=== PATIENT | male | born 1980 | race Caucasian/White ===

== ENCOUNTER 2021-12-17 11:24 | Outpatient (CLI) | payer OTHER, SELFPAY ==
[2021-12-17 12:02] LABS: Hematocrit 44.8 % (37.0-53.0); Hemoglobin* 15.5 gm/dL (13.5-17.5); Mean Corpuscular HGB Conc 35 gm/dL (32-36); Mean Corpuscular Hemoglobin 31 pg (26-34); Mean Corpuscular Volume 90 fL (80-100); Platelet Count* 242 K/uL (140-440)
[2021-12-17 12:15] LABS: Slide Review Reflex No
[2021-12-17 12:27] LABS: Hemoglobin A1C* 5.6 % (0-5.6)
[2021-12-17 21:46] LABS: Alanine Aminotransferase* 33 U/L (4-50); Albumin* 5.1 g/dL (3.3-5.0); Alkaline Phosphatase* 69 U/L (40-150); Aspartate Amino Transferase* 38 U/L (12-35); Bilirubin Total* 1.3 mg/dL (0.1-1.5); Blood Urea Nitrogen* 18 mg/dL (5-24); Calcium* 9.7 mg/dL (8.4-10.6); Carbon Dioxide* 20 mmol/L (20-32); Chloride* 105 mmol/L (96-114); Cholesterol* 185 mg/dL (90-199); Creatinine Urine 176.1 mg/dL; Creatinine* 1.2 mg/dL (0.5-1.5); Estimated Glomerular Filt Rate 78 ml/min; Glucose* 105 mg/dL (60-115); HDL Cholesterol* 54 mg/dL (>=40); LDL Cholesterol Calculated 116 mg/dL (<100); Microalbumin Creatinine Ratio 0 mg/g (0-30); Microalbumin Urine < 1 mg/dL; Potassium* 4.4 mmol/L (3.6-5.1); Sodium* 139 mmol/L (135-149); Total Protein* 8.1 g/dL (6.0-8.3); Triglycerides* 74 mg/dL (40-149)
== END 2021-12-17 11:25 | disposition home or self-care (01) ==
PROVIDERS: PCP Family Medicine; Visit Provider Family Medicine
DX: Z00.00 Encounter for general adult medical examination without abnormal findings (principal); F33.0 Major depressive disorder, recurrent, mild; F41.9 Anxiety disorder, unspecified; R03.0 Elevated blood-pressure reading, without diagnosis of hypertension; Z13.1 Encounter for screening for diabetes mellitus; Z13.6 Encounter for screening for cardiovascular disorders
CPT/HCPCS: 80053; 80061; 82043; 82570; 83036; 84443; 85027

== ENCOUNTER 2022-08-03 11:11 | Outpatient (CLI) | payer OTHER, SELFPAY | END 2022-08-03 11:12 | disposition home or self-care (01) | PROVIDERS: PCP Family Medicine; Visit Provider Dermatology | DX: L40.8 Other psoriasis (principal) | CPT/HCPCS: 80053 ==

== ENCOUNTER 2023-03-10 08:48 | Outpatient (CLI) | payer OTHER, SELFPAY | END 2023-03-10 08:49 | disposition home or self-care (01) | PROVIDERS: PCP Family Medicine; Visit Provider Family Medicine | DX: R53.83 Other fatigue (principal); F10.982 Alcohol use, unspecified with alcohol-induced sleep disorder | CPT/HCPCS: 80053; 84403 ==

== ENCOUNTER 2023-04-27 08:35 | Outpatient (CLI) | payer OTHER, SELFPAY | END 2023-04-27 08:36 | disposition home or self-care (01) | LOC: NFLDREF 04-30 07:02 | PROVIDERS: PCP Family Medicine; Referring Provider Family Medicine; Visit Provider Family Medicine | DX: E29.1 Testicular hypofunction (principal); R53.83 Other fatigue; Z12.5 Encounter for screening for malignant neoplasm of prostate; F33.0 Major depressive disorder, recurrent, mild; F41.9 Anxiety disorder, unspecified; K21.9 Gastro-esophageal reflux disease without esophagitis; F10.982 Alcohol use, unspecified with alcohol-induced sleep disorder; Z72.0 Tobacco use | CPT/HCPCS: 82533; 82728; 83001; 83002; 84146; 84403; 84443; G0103 ==

== ENCOUNTER 2024-02-09 15:59 | Outpatient (CLI) | payer OTHER, SELFPAY | END 2024-02-09 16:00 | disposition home or self-care (01) | PROVIDERS: PCP Physician Assistant Medical; Visit Provider Family Medicine | DX: B37.2 Candidiasis of skin and nail (principal); Z79.899 Other long term (current) drug therapy; Z13.220 Encounter for screening for lipoid disorders; Z12.5 Encounter for screening for malignant neoplasm of prostate | CPT/HCPCS: 80053; 80061; G0103 ==

== ENCOUNTER 2024-03-05 19:05 | Outpatient (CLI) | payer OTHER, SELFPAY ==
--- NOTE | 2024-03-14 08:41 | W.PM.SLEEP ---
Sleep Study Details Details Interpreting Provider: Ann Marie Date of Sleep Study: 03/05/24 Sleep Study Details: STUDY TYPE:? Home unattended ? BMI:? 37.3 ORDERING PROVIDER:Keiko Le INDICATION:? Concern about sleep apnea ? SLEEP SUMMARY:? 344 minutes monitored RESPIRATORY SUMMARY:? AHI 29, left lateral 24.2, prone 6.0, supine 65.3, right lateral 11.2 Low oxygen 82 2.5% of study oxygen less than 90% Snoring 78.7% PERIODIC LIMB MOVEMENTS OF SLEEP:? Not recorded CARDIAC:? Range 62-125, mean 73.3 IMPRESSION:? Moderate nearly severe obstructive sleep apnea with supine position dependency RECOMMENDATION: Treatment options include CPAP, dental appliance, weight loss and/or airway expansion surgery.
== END 2024-03-05 19:06 | disposition home or self-care (01) ==
LOC: SLEEP 19:06
PROVIDERS: PCP Physician Assistant Medical; Visit Provider Otolaryngology
DX: G47.33 Obstructive sleep apnea (adult) (pediatric) (principal)
CPT/HCPCS: 95806

== ENCOUNTER 2024-03-06 15:15 | Outpatient (CLI) | payer OTHER, SELFPAY | END 2024-03-06 15:16 | disposition home or self-care (01) | PROVIDERS: PCP Physician Assistant Medical; Visit Provider Physician Assistant Medical | DX: B35.1 Tinea unguium (principal) | CPT/HCPCS: 84450; 84460 ==

== ENCOUNTER 2024-06-13 14:18 | Outpatient (RCR) | payer OTHER, SELFPAY | END 2024-10-11 23:59 | disposition home or self-care (01) | PROVIDERS: PCP Physician Assistant Medical; Visit Provider Physician Assistant Medical | DX: M54.50 Low back pain, unspecified (principal); G89.29 Other chronic pain; M25.561 Pain in right knee; Z51.89 Encounter for other specified aftercare | CPT/HCPCS: 97110; 97161 ==

== ENCOUNTER 2024-07-02 08:33 | Outpatient (CLI) | payer OTHER, SELFPAY | END 2024-07-02 08:34 | disposition home or self-care (01) | LOC: NFLDREF 07-03 06:22 | PROVIDERS: PCP Physician Assistant Medical; Referring Provider Physician Assistant Medical; Visit Provider Physician Assistant Medical | DX: E29.1 Testicular hypofunction (principal); R73.03 Prediabetes | CPT/HCPCS: 84403; 84450; 84460 ==

== ENCOUNTER 2025-01-09 15:31 | Outpatient (CLI) | payer OTHER, SELFPAY | END 2025-01-09 15:32 | disposition home or self-care (01) | LOC: NFLDREF 01-12 14:00 | PROVIDERS: PCP Physician Assistant Medical; Referring Provider Physician Assistant Medical; Visit Provider Physician Assistant Medical | DX: R73.03 Prediabetes; Z13.9 Encounter for screening, unspecified; R53.83 Other fatigue | CPT/HCPCS: 80053; 80061; 82306; 82607; 82728; 84443 ==

== ENCOUNTER 2025-01-10 15:34 | Emergency (ER) | payer OTHER, SELFPAY ==
[2025-01-10 15:40] VITALS: BP 130/76; PULSE 82; RESP 18; TEMP 36.3; O2SAT 97; BMI 42.1
--- NOTE | 2025-01-10 16:58 | CRLHL7_ITS ---
For Patients: As a result of the Century Cures Act, medical imaging exams and procedure reports are released immediately into your electronic medical record. You may view this report before your referring provider. If you have questions, please contact your health care provider. INDICATION: Headaches. TECHNIQUE: CT head without contrast. COMPARISON: None. FINDINGS: CSF spaces: Within normal limits for age. Brain parenchyma and extra-axial spaces: The nolasco-white differentiation is normal. No sign of mass, hemorrhage, or midline shift. No extra-axial fluid collection. Skull base and calvarium: The visualized paranasal sinuses and mastoid air cells demonstrate no acute or significant findings. The visualized orbits are grossly unremarkable. No skull fractures. IMPRESSION: Unremarkable noncontrast head CT. Please note that all CT scans at this facility use dose modulation, iterative reconstruction, and/or weight-based dosing when appropriate to reduce radiation dose to as low as reasonably achievable. Dictated by Wili Garcia MD @ 01/10/2025 5:22:55 PM (Electronically Signed)
--- NOTE | 2025-01-10 16:59 | ED.HA ---
HPI - Headache General Chief Complaint: Headache/Migraine Stated Complaint: sent from urgent care, needs MRI Time Seen by Provider: 01/10/25 16:36 History of Present Illness HPI Narrative: This 44-year-old male states that he has been having headaches on and off over the past 8 months or so. He states that they seem to generate an back side of his neck on either side and then pain emanates upper lung the back of his head. These are sharp pains that last a brief time. He does have some mild neck pain. He is not complaining of headache currently. He was at a therapy appointment and had an episode like this and was told to go immediately to the emergency department. He did not go but his headache returned again today so he went to urgent care. He was told at urgent care that he needs to have an MRI to evaluate for a stroke. He is not exhibiting any signs or reporting any signs of stroke. But these comments have triggered significant anxiety related to these matters. 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 Related Data Home Medications ?Medication ?Instructions ?Recorded ?Confirmed sildenafil (pulm.hypertension) 20 20 mg PO QDAY PRN 12/17/21 01/09/25 mg tablet bupropion HCl 300 mg 24 hr tablet, 300 mg PO DAILY 02/09/24 01/09/25 extended release naltrexone microspheres 380 mg 380 mg IM MONTHLY 02/09/24 01/10/25 intramuscular suspension,extended release (Vivitrol) guanfacine 3 mg tablet,extended 3 mg PO DAILY 01/09/25 01/09/25 release 24 hr hydroxyzine HCl 25 mg tablet 25 mg PO QHS 01/09/25 01/09/25 Previous Rx's ?Medication ?Instructions ?Recorded ketoconazole 2 % shampoo 1 applic topical 2XW #120 mL 08/03/22 ketoconazole 2 % topical cream 1 applic topical 2XW #60 grams 11/16/22 clotrimazole 1 % topical ointment 1 applic topical BID #56.7 grams 02/09/24 nystatin 100,000 unit/gram topical 1 applic topical BID #30 grams 02/10/24 ointment nicotine (polacrilex) 4 mg buccal 4 mg buccal Q8H PRN for nicotine 05/14/24 lozenge cravings #96 delvis fluoxetine 40 mg capsule (Prozac) 40 mg PO QAM #90 caps 04/04/25 omeprazole 20 mg capsule,delayed 20 mg PO QDAY #90 caps 12/13/24 release testosterone 1.62 % (20.25 mg/1.25 1 packet transdermal QAM 90 days 01/09/25 gram) transdermal gel packet #112.5 grams (AndroGel) tizanidine 4 mg tablet 4 mg PO QHS PRN muscle spasticity 01/09/25 #30 tabs tirzepatide (weight loss) 2.5 2.5 mg (0.5 mL) subcut QWEEK #2 mL 01/10/25 mg/0.5 mL subcutaneous pen injector (Zepbound) Allergies Allergy/AdvReac Type Severity Reaction Status Date / Time No Known Drug Allergies Allergy Verified 01/10/25 15:40 Review of Systems Status of ROS: Reports: 10 or more systems reviewed and unremarkable except as noted in History and below Narrative: Constitutional: No fevers, no weight gain or loss. Eyes: No discharge. No vision changes. HENT: No congestion, no sore throat, no ear pain. Cardiovascular: No chest pain, no palpitations. Respiratory: No shortness of breath, no wheezes, no cough. Gastrointestinal: No abdominal pain, no vomiting, no diarrhea. Genitourinary: No dysuria, no hematuria. Musculoskeletal: Normal range of motion. Skin: No rashes, no pruritis. Neurological: No dizziness, weakness, sensory change, speech change. Endo/Heme/Allergies: No bruising or bleeding. No polydipsia. Pysch: no suicidality, no insomnia. All other systems reviewed and are negative. [facility] Medical History (Updated 01/10/25 @ 18:02 by Waqar Almeida MD) Medication management ?Z79.899 - Other terminal operator (current) drug therapy (ICD-10) Headache ?R51.9 - Headache, unspecified (ICD-10) Impetigo ?L01.00 - Impetigo, unspecified (ICD-10) Fracture of tibia and fibula ?S82.209A - Unspecified fracture of shaft of unspecified tibia, initial encounter for closed fracture (ICD-10) ?S82.409A - Unspecified fracture of shaft of unspecified fibula, initial encounter for closed fracture (ICD-10) History of depression (12/20/11) ?Z86.59 - Personal history of other mental and behavioral disorders (ICD-10) Surgical History (Updated 11/12/22 @ 14:11 by Luis Greenberg) History of right knee surgery (02/05/20) ?Z98.890 - Other specified postprocedural states (ICD-10) History of tonsillectomy ?Z90.89 - Acquired absence of other organs (ICD-10) Social History (Updated 01/09/25 @ 14:52 by Kylee Reza ~ [facility], [facility]) What is your current living situation?: I presently have a place to live In the past 12 months, utilities in danger of being shut off: no In past 12 months, lack of transportation kept you from medical appts, meetings, work, or getting things needed for daily living: no In the past 12 mos, have been you worried that your food would run out before you had money to buy more?: never true In the past 12 mos, the food you bought just didn't last and you didn't have money to buy more?: never true Physical activity type: none Smoking Status: Current every day smoker What tobacco products do you use: cigarettes Nicotine containing products detail: 15 per day x15 years Second hand tobacco smoke exposure: No How often do you have a drink containing alcohol: never How many standard drinks containing alcohol do you have on a typical day: 10 or more How often do you have six or more drinks on one occasion: Never AUDIT-C Alcohol total score: 4 Non-prescribed substance use: denies use How often does anyone, including family, friends and others, physically hurt you: never How often does anyone, including family, friends and others, insult or talk down to you: never How often does anyone, including family, friends and others, threaten you with harm: never How often does anyone, including family, friends and others, scream or curse at you: never service: No Exam Narrative: Exam Narrative: Constitutional: Well-developed, well-nourished, no acute distress. HEENT: Normocephalic, atraumatic. Neck: Normal range of motion. Nontender. Supple. Heart: Regular. No murmurs. Normal rate. Intact distal pulses. Lungs: Clear to auscultation. No chest discomfort. No wheezes, rhonchi, or rales. Abdomen: Normal bowel sounds. Nontender. No rebound tenderness. Genitalia: Deferred. Back: No midline tenderness. Normal range of motion. Extremities: Normal range of motion. No injury. Skin: Intact. No rash. Warm. No erythema or pallor. Neurologic: No altered sensation. No weakness. Alert and oriented. No facial asymmetry. Tongue is midline. [id number]-jg-[id number] is normal. No pronator drift. Foster Winder strength is equal bilaterally. Able to raise each leg from the bed. Psychiatric: No suicidality. No anxiety or depression. No insomnia. Nursing notes and vitals signs are reviewed. Const: Vital Signs, click to edit/add: Vital Signs - 24 hr 01/10/25 15:40 Temperature 97.3 F L Pulse Rate [Pulse Oximeter] 82 Respiratory Rate 18 Blood Pressure [Ri ght Upper Arm] 130/76 Pulse Oximetry 97 Oxygen Delivery Me thod Room Air Course Vital Signs Vital signs: Initial Vital Signs Temperature 97.3 F L 01/10/25 15:40 Temperature Source Temporal Artery Scan 01/10/25 15:40 Pulse Rate 82 01/10/25 15:40 Respiratory Rate 18 01/10/25 15:40 Blood Pressure 130/76 01/10/25 15:40 Blood Pressure Mean 94 01/10/25 15:40 Pulse Oximetry 97 01/10/25 15:40 Oxygen Delivery Method Room Air 01/10/25 15:40 Vital Signs Temperature 97.3 F L 01/10/25 15:40 Pulse Rate 82 01/10/25 15:40 Respiratory Rate 18 01/10/25 15:40 Blood Pressure 130/76 01/10/25 15:40 Pulse Oximetry 97 01/10/25 15:40 Oxygen Delivery Method Room Air 01/10/25 15:40 Temperature 97.3 F L 01/10/25 15:40 Pulse Rate 82 01/10/25 15:40 Respiratory Rate 18 01/10/25 15:40 Blood Pressure 130/76 01/10/25 15:40 Pulse Oximetry 97 01/10/25 15:40 Oxygen Delivery Method Room Air 01/10/25 15:40 Medications Administered Medications: Generic Name Dose Route Start Last Admin Trade Name Freq PRN Reason Stop Dose Admin Lidocaine HCl 30 ml 01/10/25 16:57 01/10/25 17:04 Lidocaine 1 % Pf 30 Ml INJECTION 30 ml ONCE PRN Administration Discontinued Medications Generic Name Dose Route Start Last Admin Trade Name Freq PRN Reason Stop Dose Admin Methylprednisolone Sodium Succinate 125 mg 01/10/25 16:57 01/10/25 17:04 Methylprednisolone Sod Succ 62.5 Mg/Ml (125) IM 01/10/25 16:58 125 mg ONCE ONE Administration MDM - Headache MDM Narrative Medical decision making narrative: this patient comes in reporting brief sharp headache episodes that emanate from the left or the right side of his occipital region and posterior neck. He is anxious because someone told him that he might be having a stroke. He was sent here from urgent care for an MRI. His neurologic exam is completely normal and currently he is not having any symptoms. I stated that an MRI is not indicated but the patient was sufficiently anxious and interested in getting a CT scan. This returns with normal findings. His symptoms are suspicious for an occipital neuralgia so I recommended a therapeutic injection which she agreed to. The patient received 125 mg of Solu-Medrol mixed with 5 mL of 1% lidocaine. This was injected half on either side of his nuchal ligament overlying the occipital nerves. He tolerated the procedure well. He is okay to be discharged home. Imaging Data CT scan - head: Radiologist's impression: Unremarkable noncontrast head CT. Discharge Plan Discharge Clinical Impression: Occipital neuralgia Patient Disposition: Home, Self-Care Condition: Stable Additional Instructions: use sula-whr-ctfjoes medicines as needed and directed. Follow up with MD or return symptoms are recurrent or worsening. Prescriptions: No Action sildenafil (pulm.hypertension) 20 mg tablet 20 mg PO QDAY PRN Patient Comments: Take 3 tablets by mouth one hour prior to sex as needed. guanfacine 3 mg tablet extended release 24 hr 3 mg PO DAILY hydroxyzine HCl 25 mg tablet 25 mg PO QHS testosterone [AndroGel] 1.62 % (20.25 mg/1.25 gram) gel in packet 1 packet transdermal QAM 90 Days Qty: 112.5 1RF Rx Instructions: apply to max area of ONE upper arem and shoulder tizanidine 4 mg tablet 4 mg PO QHS PRN (Reason: muscle spasticity) Qty: 30 0RF ketoconazole 2 % shampoo 1 applic topical 2XW Qty: 120 2RF bupropion HCl 300 mg tablet extended release 24 hr 300 mg PO DAILY Vivitrol 380 mg suspension,extended rel recon 380 mg IM MONTHLY clotrimazole 1 % ointment 1 applic topical BID Qty: 56.7 12RF ketoconazole 2 % cream 1 applic topical 2XW Qty: 60 0RF Rx Instructions: Apply to face two times per week. nystatin 100,000 unit/gram ointment 1 applic topical BID Qty: 30 1RF nicotine (polacrilex) 4 mg lozenge 4 mg buccal Q8H PRN (Reason: for nicotine cravings) Qty: 96 0RF fluoxetine [Prozac] 40 mg capsule 40 mg PO QAM Qty: 90 0RF omeprazole 20 mg capsule,delayed release(DR/EC) 20 mg PO QDAY Qty: 90 0RF Zepbound 2.5 mg/0.5 mL pen injector 2.5 mg subcut QWEEK Qty: 2 0RF Rx Instructions: for 4 weeks Follow Up/Referrals: Yo Le PA-C [Primary Care Provider, Family Practice] Stand Alone Forms: [facility] Info Instructions
[2025-01-10] MEDS: METHYLPREDNISOLONE SOD SUCC 62.5 MG/ML (125) 125 MG IM (17:04)
[2025-01-10] MEDS: LIDOCAINE 1 % PF 30 ML INJECTION (17:04)
--- OUTSIDE RECORDS SUMMARY | 2025-01-10 17:06 | XMS_ITS | Encounter Summary ---
Author Organization [facility] Address [address] [place] [address] Care Team Providers Care Aerospace Engineer Name Role Phone Andrew Carbone MD Primary Care Provider [phone] Andrew Carbone MD Unavailable Andrew Carbone MD Unavailable Encounter Details Date Type Department Care Team (Late st Contact Info) Description 07/13/2018 My[facility] Medical Advice [facility] [id number] [place] [address], [address] [place] [address] Kylee Morley, [facility] Social History Tobacco Use Types Packs/Day Years Used Date Smoking Tobacco: Former Cigarettes 1 12 1 05/18/1999 - 03/17/2012 Smokeless Tobacco: Never Alcohol Use Standard Drinks/Week Comments Yes 0 (1 standard drink = 0.6 oz pur e alcohol) 2-5 drinks daily (beer). 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 Gender Identity Not on file Sexual Orientation Not on file documented as of this encounter Plan of Treatment Not on file documented as of this encounter Visit Diagnoses Not on filedocumented in this encounter Additional Health Concerns Assessment Noted Time PHQ-9 Depression Total Score: 7 06/06/19 19 3:06 PM CERTIFIED MARINE MECHANIC documented as of this encounter Care Teams Aerospace Engineer Relationship Specialty Start Date End Date Andrew Carbone MD PCP - General Family Practice 01/19/12 [place] [id number] [address] [id number] Assigned PCP 11/16/20 01/01/24 [place] [id number] [address] [id number] Assigned PCP 01/13/12 11/15/20 documented as of this encounter
--- OUTSIDE RECORDS SUMMARY | 2025-01-10 17:06 | XMS_ITS | Clinical Summary ---
Author Organization [facility] Address [address] [place] [address] Care Team Providers Care Clean Out Driller Name Role Phone Pcp, No Primary Care Provider Unavailabl e Allergies No known active allergies Medications loratadine (ALAVERT) 10 mg tablet Take 1 tablet by mouth once daily. 0 1 Active sertraline (ZOLOFT) 100 mg tablet Take 1 tablet by mouth once daily. 30 tablet 0 1 Active azithromycin (ZITHROMAX Z-JIN) 250 mg tablet Take 2 tablets by mouth today, then take 1 tablet daily the next 4 days. 6 tablet 10/10/2014 8:16 PM CDT 5 Active omeprazole (PRILOSEC) 20 mg Delayed-Release capsule Take 1 Capsule by mouth once daily. 2 Active FLUoxetine (PROZAC) 40 mg capsule 3 Active buPROPion 300 mg Extended-Release tablet Take 1 Tablet by mouth once daily. 5 Active celecoxib 100 mg capsule 5 Active hydrOXYzine HCL 25 mg tablet Take 1 Tablet by mouth every 6 hours if needed for Anxiety. 4 Active nystatin 100,000 unit/g ointment apply topically twice a day 4 Active VivitroL 380 mg intramuscular injection 5 Active erythromycin ophthalmic ointment 0.5%Indications:A brasion of right cornea, initial encounter Apply 1 Strip to right eye 5 times daily. 3.5 g 5 Active ranitidine (ZANTAC) 150 mg tablet TAKE 1 TABLET BY MOUTH 2 TIMES DAILY. 60 tablet 2 2 025 Discontin ued(*Alisia ent states no longer taking) naproxen (NAPROSYN) 500 mg tablet Take 1 tablet by mouth 2 times daily with meals. 20 tablet 10/10/2014 8:16 PM CDT 5 025 Discontin ued(*Alisia ent states no longer taking) Active Problems Problem Noted Date Diagnosed Date Adjustment disorder with mixed anxiety and depre ssed mood 12/11/2010 Plantar fasciitis 12/11/2010 GERD (gastroesophageal reflux disease) 1 Resolved Problems Problem Noted Date Diagnosed Date Resolved Date Depressive disorder, not elsewhere classified 06/17/19 07 12/11/2010 Encounters Date Type Department Care Team Description 01/10/2025 2:30 PM CDT Office Visit [facility] [id number] [place] [id number] Beckie Davis MD Headache 01/10/2025 Travel 12/24/2024 3:20 PM CDT Office Visit [facility] [address] [place] [address] Skye Marmolejo MD Referral (Sleep ) 12/24/2024 Travel 12/21/2024 Travel from Last 3 Months Immunizations Immunization Administration Dates Next Due INFLUENZA, IIV3 PF (AGE >= 6 MO) 01/05/2016 Influenza, IIV4 01/20/2015,02/15/2014 Tdap 04/10/2014,12/20/2011 Social History Tobacco Use Types Packs/Day Years Used Date Smoking Tobacco: Former Cigarettes 1 22.1 2 003 - 05/2024 Smokeless Tobacco: Former Chew Tobacco Cessation:Counseling Given: Not Answered Comments:occasional Alcohol Use Standard Drinks/Week Comments Not Asked 0 (1 standard drink = 0.6 oz pur e alcohol) Social Connections Answer Date Recorded Do you often feel lonely or isolated from those around you? 0 07/14/2024 Alcohol Use Answer Date Recorded How often do you have a drink containing alcohol ? 0 12/24/2024 Average Number of Drinks Not on file 025 Frequency of Binge Drinking Not on file 12/10 Financial Resource Strain Answer Date R ecorded Difficulty of Paying Living Expenses 3 07/14/2024 Difficulty of Paying Living Expenses Not on file 07/14/2024 Food Insecurity Answer Date Recorded Do you worry your food will run out before you are able to buy more? 1 07/14/2024 Transportation Needs Answer Date Record ed Does lack of transportation keep you from medica l appointments? 1 07/14/2024 Does lack of transportation keep you from work, meetings or getting things that you need? 1 07/14/2024 Housing Stability Answer Date Recorded What is your housing situation today? 1 07/14/2024 Utilities Answer Date Recorded Do you have trouble paying f or utilities (for example, heat, electricity, water, phone)? 1 07/14/2024 Sex and Gender Information Value Date Recorded Sex Assigned at Not on file Legal Sex Male 7:18 AM INDUSTRIAL SAFETY ENGINEER Gender Identity Not on file Sexual Orientation Not on file Obstetrics History Last Filed Vital Signs Vital Sign Reading Time Taken Comments Blood Pressure 122/66 01/10/2025 2:54 PM CDT Pulse 70 01/10/2025 2:54 PM CDT Temperature 36.1 C (97 F) 01/10/2025 2:54 PM CDT Respiratory Rate 18 01/10/2025 2:54 PM CDT Oxygen Saturation 100% 01/10/2025 2:54 PM CDT Inhaled Oxygen Concentration - - Weight 126.6 kg (279 lb) 12/24/2024 3:22 PM CDT Height 177.8 cm (5' 10) 11/17/2022 10:44 AM CDT Body Mass Index 40.03 11/17/2022 10:44 AM CDT Plan of Treatment Upcoming Encounters Date Type Department Care Team (Late st Contact Info) Description 02/13/2025 2:30 PM INDUSTRIAL SAFETY ENGINEER Office Visit [facility] [address] [facility] [address] [place] [address] Becky Macias MD [address] [address] Health Maintenance Due Date Last Done Comments Depression screening for age 12+ 1992 HIV for age 15-65 10/27/1995 Hepatitis C screening for ag e 18-79 1998 Hepatitis B series for 19+ ( 1 of 3 - 19+ 3-dose series) 10/27/1999 HPV series for age 9-45 (1 - 3-dose SCDM series) 10/27/2007 Lipids for age 35-44 10/27/2015 BMI (ht and wt on same day) for age 18+ 11/18/2023 11/17/2022 Tetanus booster 04/10/2024 04/10/2014, 12/20/2011 COVID-19 vaccine series (2023- season) 2024 Influenza Vaccine (#1) 2024 6, 01/20/2015, 02/15/2014 RSV vaccine for adults or (1 - 1-dose 75+ series) 10/27/2055 Pneumococcal series for age 6-49 Aged Out No longer eligible b ased on patient's age to complete this topic Insurance [facility] Care Teams Clean Out Driller Relationship Specialty Start Date End Date Pcp, No . PCP - General 11/17/22
--- OUTSIDE RECORDS SUMMARY | 2025-01-10 17:06 | XMS_ITS | Encounter Summary ---
Author Organization [facility] Address [address] [place] [address] Care Team Providers Care Grab Setter Name Role Phone Andrew Carbone MD Primary Care Provider [phone] Andrew Carbone MD Unavailable Andrew Carbone MD Unavailable Encounter Details Date Type Department Care Team (Late st Contact Info) Description 09/16/2020 [facility] Medical Advice [address] [address] Portia Harris Social History Tobacco Use Types Packs/Day Years Used Date Smoking Tobacco: Former Cigarettes 1 12 1 05/18/1999 - 03/17/2012 Smokeless Tobacco: Never Alcohol Use Standard Drinks/Week Comments Yes 0 (1 standard drink = 0.6 oz pur e alcohol) 2-5 drinks daily (beer). PHQ-2 Answer Date Recorded PHQ-2 Score 0 05/23/2019 Sex and Gender Information Value Date Recorded Sex Assigned at Not on file Legal Sex Male 5:15 AM RN FAMILY PRACTICE Gender Identity Not on file Sexual Orientation Not on file documented as of this encounter Plan of Treatment Not on file documented as of this encounter Visit Diagnoses Not on filedocumented in this encounter Additional Health Concerns Assessment Noted Time PHQ-9 Depression Total Score: 9 06/06/19 20 7:03 AM RN FAMILY PRACTICE documented as of this encounter Care Teams Grab Setter Relationship Specialty Start Date End Date Andrew Carbone MD PCP - General Family Practice 01/19/12 [place] [address] [address] [address] Assigned PCP 11/16/20 01/01/24 [place] [address] [address] [id number] Assigned PCP 01/13/12 11/15/20 documented as of this encounter
--- OUTSIDE RECORDS SUMMARY | 2025-01-10 17:06 | XMS_ITS | Encounter Summary ---
Author Organization [facility] Address [address] [place] [address] Care Team Providers Care Auto Parts Handler Name Role Phone Anrdew Carbone MD Primary Care Provider [phone] Andrew Carbone MD Unavailable Andrew Carbone MD Unavailable Andrew Carbone MD Unavailable Encounter Details Date Type Department Care Team (Late st Contact Info) Description 12/09/2014 [facility] Medical Advice [address] [address] Cherelle Hernandez APRN MILL ATTENDANT [address] [place] [address] [address] [place], [place] [id number] Social History Tobacco Use Types Packs/Day Years Used Date Smoking Tobacco: Former Cigarettes 1 12 1 05/18/1999 - 03/17/2012 Smokeless Tobacco: Never Alcohol Use Standard Drinks/Week Comments Yes 0 (1 standard drink = 0.6 oz pur e alcohol) 2-5 drinks daily (beer). 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
--- OUTSIDE RECORDS SUMMARY | 2025-01-10 17:06 | XMS_ITS | Encounter Summary ---
Author Organization [place] Address [facility] [place] [address] Care Team Providers Care Research Assistant Member Name Role Phone Andrew Carbone MD Primary Care Provider [phone] Andrew Carbone MD Unavailable Reason for Visit * Reason Comments Medication Refill Encounter Details Date Type Department Care Team (Late st Contact Info) Description 11/23/2021 Refill [facility] [id number] [place] [address] [place] [address] [place] [address] Medication Refill Social History Tobacco Use Types Packs/Day Years Used Date Smoking Tobacco: Every Day Cigarettes 1 12 Started: 03/17/2000; Last attempted to quit: 03/17/2012 Smokeless Tobacco: Never Alcohol Use Standard Drinks/Week Comments Yes 0 (1 standard drink = 0.6 oz pur e alcohol) 2-5 drinks daily (beer). 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 Patient was last seen on 11/10/2020. Melissa Sanz RN Patient Advocate Liaison (PAL) [facility] documented in this encounter Plan of Treatment Not on file documented as of this encounter Visit Diagnoses Diagnosis Gastroesophageal reflux disease, unspecified whether esophagitis present documented in this encounter Additional Health Concerns Assessment Noted Time PHQ-9 Depression Total Score: 15 021 1:33 PM CDT documented as of this encounter Care Teams Research Assistant Member Relationship Specialty Start Date End Date Andrew Carbone MD PCP - General Family Practice 01/19/12 [place] [address] [place] [address] Assigned PCP 11/16/20 01/01/24 documented as of this encounter
--- OUTSIDE RECORDS SUMMARY | 2025-01-10 17:06 | XMS_ITS | Encounter Summary ---
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
--- OUTSIDE RECORDS SUMMARY | 2025-01-10 17:06 | XMS_ITS | Encounter Summary ---
Author Organization [place] Address [address] [place] [address]. [place] [address] Care Team Providers Care Electric Freight Car Operator Name Role Phone Andrew Carbone MD Primary Care Provider [phone] Andrew Carbone MD Unavailable Andrew Carbone MD Unavailable Andrew Carbone MD Unavailable Reason for Visit * Reason Onset Date Comments Medication Refill 09/09/2017 venlafaxine (E FFEXOR-XR) 150MG & 75MG 24 hr capsule Encounter Details Date Type Department Care Team (Late st Contact Info) Description 09/09/[address], [address] [place] [address] [place] [address] [place] [address] Medication Refill (venlafaxine (EFFEXOR-XR) 150MG & 75MG 24 hr capsule) Social History Tobacco Use Types Packs/Day Years Used Date Smoking Tobacco: Former Cigarettes 1 12 1 05/18/1999 - 03/17/2012 Smokeless Tobacco: Never Alcohol Use Standard Drinks/Week Comments Yes 0 (1 standard drink = 0.6 oz pur e alcohol) 2-5 drinks daily (beer). 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 This is the third voicemail left per below documentation. Will route to PCP to review refill request. Lizzy Larose RN -- [facility] Workforce * Telephone Encounter - Cheyenne Andrade RN - 09/16/2017 4:04 PM CDT LM to schedule appt Cheyenne Andrade RN, BS Clinical Nurse Triage. * Telephone Encounter - Dina Rinaldi RN - 09/09/2017 9:06 AM CDT Patient due for an office visit. Almost 1 year since last OV (09/14/2016) Left a detailed message on voice mail for patient to call the clinic back and schedule an appointment. Dina Rinaldi RN venlafaxine (EFFEXOR-XR) 150MG & 75MG 24 hr capsule Last Written Prescription Date: 01/25/2017 Last Fill Quantity: 30, # refills: 3 Last office visit: 09/14/2016 with prescribing provider: Future Office Visit: Requested Prescriptions Pending Prescriptions Disp Refills ??? venlafaxine (EFFEXOR-XR) 75 MG 24 hr capsule [Pharmacy Med Name: VENLAFAXINE ER 75MG CAP] 30 capsule 3 Sig: TAKE ONE CAPSULE BY MOUTH EVERY DAY ALONG WITH THE 150MG CAPSULE TO MAKE A TOTAL DOSE OF 225MGDAILY . Serotonin-Norepinephrine Reuptake Inhibitors Failed 09/09/2017 3:50 AM Failed - Normal serum creatinine on file in past 12 months Recent Labs Lab Test 03/19/15 0833 CR 1.02 Passed - Blood pressure under 140/90 in past 12 months BP Readings from Last 3 Encounters: 09/14/16 132/88 03/19/15 126/78 01/20/15 136/62 Passed - Recent (12 mo) or future (30 days) visit within the authorizing provider's specialty Patient had office visit in the last 12 months or has a visit in the next 30 days with authorizing provider or within the authorizing provider's specialty. See Patient Info tab in inbasket, or Choose Columns in Meds & Orders section of the refill encounter. Passed - Patient is age 18 or older ??? venlafaxine (EFFEXOR-XR) 150 MG 24 hr capsule [Pharmacy Med Name: VENLAFAXINE HCL ER 150MG CP24] 30 capsule 3 Sig: TAKE ONE CAPSULE BY MOUTH EVERY DAY ALONG WITH A 75MG CAPSULE TO MAKE A TOTAL DOSE OF 225MG DAILY . Serotonin-Norepinephrine Reuptake Inhibitors Failed 09/09/2017 3:50 AM Failed - Normal serum creatinine on file in past 12 months Recent Labs Lab Test 03/19/15 0833 CR 1.02 Passed - Blood pressure under 140/90 in past 12 months BP Readings from Last 3 Encounters: 09/14/16 132/88 03/19/15 126/78 01/20/15 136/62 Passed - Recent (12 mo) or future (30 days) visit within the authorizing provider's specialty Patient had office visit in the last 12 months or has a visit in the next 30 days with authorizing provider or within the authorizing provider's specialty. See Patient Info tab in inbasket, or Choose Columns in Meds & Orders section of the refill encounter. Passed - Patient is age 18 or older documented in this encounter Plan of Treatment Not on file documented as of this encounter Visit Diagnoses Diagnosis Generalized anxiety disorder documented in this encounter Additional Health Concerns Assessment Noted Time PHQ-9 Depression Total Score: 7 09/17/19 17 7:13 AM CDT documented as of this encounter Care Teams Electric Freight Car Operator Relationship Specialty Start Date End Date Andrew Carbone MD PCP - General Family Practice 01/19/12 [place] [address] [address] [address] PCP - Assigned PCP 10/31/11 06/13/18 [place] [address] [address] [address] Assigned PCP 11/16/20 01/01/24 [place] [address] [address] [place] [address] Assigned PCP 01/13/12 11/15/20 documented as of this encounter
--- OUTSIDE RECORDS SUMMARY | 2025-01-10 17:06 | XMS_ITS | Encounter Summary ---
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 HEADING Gender Identity Not on file Sexual Orientation Not on file documented as of this encounter Plan of Treatment Not on file documented as of this encounter Visit Diagnoses Not on filedocumented in this encounter Additional Health Concerns Assessment Noted Time PHQ-9 Depression Total Score: 7 06/06/19 19 3:06 PM SUPERVISOR HEADING documented as of this encounter Care Teams Financial Reporting Consultant Relationship Specialty Start Date End Date Andrew Carbone MD PCP - General Family Practice 01/19/12 [place] [address] [address] [address] Assigned PCP 11/16/20 01/01/24 [place] [address] [address] [place] [address] Assigned PCP 01/13/12 11/15/20 documented as of this encounter
--- OUTSIDE RECORDS SUMMARY | 2025-01-10 17:06 | XMS_ITS | Encounter Summary ---
Author Organization [place] Address [facility] 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 Deena Rojas RN on 02/03/2021 at 2:50 PM documented in this encounter Plan of Treatment Not on file documented as of this encounter Visit Diagnoses Diagnosis Gastroesophageal reflux disease, unspecified whether esophagitis present documented in this encounter Additional Health Concerns Assessment Noted Time PHQ-9 Depression Total Score: 15 021 1:33 PM CDT documented as of this encounter Care Teams School Supervisor Relationship Specialty Start Date End Date Andrew Carbone MD PCP - General Family Practice 01/19/12 [place] [address] [place] [address] Assigned PCP 11/16/20 01/01/24 documented as of this encounter
--- OUTSIDE RECORDS SUMMARY | 2025-01-10 17:06 | XMS_ITS | Encounter Summary ---
Author Organization [place] Address [address] [place] [address] Care Team Providers Care Field Contractor Name Role Phone Andrew Carbone MD Primary Care Provider [phone] Andrew Carbone MD Unavailable Andrew Carbone MD Unavailable Andrew Carbone MD Unavailable Reason for Visit * Reason Comments Medication Refill omeprazole (PRILOSEC ) 20 MG CR capsule Encounter Details Date Type Department Care Team (Late st Contact Info) Description 07/30/[address], [address] [place] [address] [place] [address] [place] [address] Medication Refill (omeprazole (PRILOSEC) 20 MG CR capsule) Social History Tobacco Use Types Packs/Day Years Used Date Smoking Tobacco: Former Cigarettes 1 12 1 05/18/1999 - 03/17/2012 Smokeless Tobacco: Never Alcohol Use Standard Drinks/Week Comments Yes 0 (1 standard drink = 0.6 oz pur e alcohol) 2-5 drinks daily (beer). 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 Cheyenne Andrade RN, BS Clinical Nurse Triage. * Telephone Encounter - JulioIoana Cristian - 07/30/2016 9:53 AM CDT omeprazole (PRILOSEC) 20 MG CR capsule Last Written Prescription Date: 07/30/2016 Last Fill Quantity:90, # refills: 3 Last Office Visit with [facility] or [facility] prescribing provider:03/19/2015 documented in this encounter Plan of Treatment Not on file documented as of this encounter Visit Diagnoses Diagnosis Gastroesophageal reflux disease, esophagitis presence not specified- Primary documented in this encounter Additional Health Concerns Assessment Noted Time PHQ-9 Depression Total Score: 7 03/20/20 15 7:29 AM TIPPLE OILER documented as of this encounter Care Teams Field Contractor Relationship Specialty Start Date End Date Andrew Carbone MD PCP - General Family Practice 01/19/12 [place] [address] [address] [address] PCP - Assigned PCP 10/31/11 06/13/18 [place] [address] [address] [address] Assigned PCP 11/16/20 01/01/24 [place] [address] [address] [address] Assigned PCP 01/13/12 11/15/20 documented as of this encounter
--- OUTSIDE RECORDS SUMMARY | 2025-01-10 17:06 | XMS_ITS | Encounter Summary ---
Author Organization [place] Address [address] [place] [address]. [place] [address] Care Team Providers Care Communications Professional Name Role Phone Andrew Carbone MD Primary Care Provider [phone] Andrew Carbone MD Unavailable Andrew Carbone MD Unavailable Reason for Visit * Reason Onset Date Comments Medication Refill 05/15/2019 Effexor XR 150 mg and 75mg Encounter Details Date Type Department Care Team (Late st Contact Info) Description 05/15/2019 Refill [place] [address] [facility], [address] [place] [address] [place] [address] [place] [address] Medication Refill (Effexor XR 150mg and 75mg) Social History Tobacco Use Types Packs/Day Years [...] on file 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 Gender Identity Not on file Sexual Orientation Not on file documented as of this encounter Miscellaneous Notes * Telephone Encounter - Dina Rinaldi RN - 05/15/2019 4:04 PM CST Effexor XR 150mg and 75mg Last Written Prescription Date: 2018 Last Fill Quantity: 90, # refills: 1 Last office visit: 2018 with prescribing provider: Future Office Visit: PHQ-9 SCORE 04/24/2018 05/25/2018 06/06/2018 PHQ-9 Total Score - - - PHQ-9 Total Score 19 8 7 RENÉ-7 SCORE 04/24/2018 05/25/2018 06/06/2018 Total Score - - - Total Score 12 7 4 Creatinine Date Value Ref Range Status 03/19/2015 1.02 0.66 - 1.25 mg/dL Final Routing refill request to provider for review/approval because: Labs not current: Needs yearly creatinine. PHQ-9 > 4. Dina Rinaldi RN STRIAL NURSE documented in this encounter Plan of Treatment Not on file documented as of this encounter Visit Diagnoses Diagnosis Generalized anxiety disorder documented in this encounter Additional Health Concerns Assessment Noted Time PHQ-9 Depression Total Score: 7 06/06/19 19 3:06 PM INDUSTRIAL NURSE documented as of this encounter Care Teams Communications Professional Relationship Specialty Start Date End Date Andrew Carbone MD PCP - General Family Practice 01/19/12 [place] [address] [address] [address] Assigned PCP 11/16/20 01/01/24 [place] [address] [address] [address] Assigned PCP 01/13/12 11/15/20 documented as of this encounter
--- OUTSIDE RECORDS SUMMARY | 2025-01-10 17:06 | XMS_ITS | Encounter Summary ---
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 Jazmine Rangel RN ED TAPE PRESS OPERATOR documented in this encounter Plan of Treatment Not on file documented as of this encounter Visit Diagnoses Diagnosis Gastroesophageal reflux disease Esophageal reflux documented in this encounter Additional Health Concerns Assessment Noted Time PHQ-9 Depression Total Score: 9 06/06/19 20 7:03 AM GUMMED TAPE PRESS OPERATOR documented as of this encounter Care Teams Licensing Officer Relationship Specialty Start Date End Date Andrew Carbone MD PCP - General Family Practice 01/19/12 [place] [address] [address] [address] Assigned PCP 11/16/20 01/01/24 [place] [address] [address] [address] Assigned PCP 01/13/12 11/15/20 documented as of this encounter
--- OUTSIDE RECORDS SUMMARY | 2025-01-10 17:06 | XMS_ITS | Patient Health Record ---
Author Organization [facility] Address [address] [place] [address] Support Name Relationship Address Phone Christopher Vang Guarantor Unknown Unavailable Reason For Referral No Information Medications Medication SIG (Take, Route, Frequency, Duration) Notes Start Date End Date Status Omeprazole ; Duration: 90 SpecialInstructi on: TAKE 1 CAPSULES (20 MG) BY MOUTH DAILY TAKE 30-60 MINUTES BEFORE A ROB L. 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
--- OUTSIDE RECORDS SUMMARY | 2025-01-10 17:06 | XMS_ITS | Encounter Summary ---
Author Organization [place] Address [address] [place] [address] Care Team Providers Care Demand Generator Manager Name Role Phone Andrew Carbone MD Primary Care Provider [phone] Andrew Carbone MD Unavailable Andrew Carbone MD Unavailable Reason for Visit * Reason Onset Date Comments Medication Refill 07/07/2018 omeprazole ([place] ILOSEC) [address] capsule Encounter Details Date Type Department Care Team (Late st Contact Info) Description 07/07/2018 Refill [place] [address] [facility], [address] [place] [address] [place] [address] [place] [address] Medication Refill (omeprazole (PRILOSEC) [address] capsule) Social History Tobacco Use Types Packs/Day [...] on file 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 Dina Rinaldi RN * Telephone Encounter - Addie Ni - 07/07/2018 9:54 AM CDT Requested Prescriptions Pending Prescriptions Disp Refills ??? omeprazole (PRILOSEC) [address] capsule [Pharmacy Med Name: OMEPRAZOLE 20MG CPDR] Last Written Prescription Date: Last Fill Quantity: 90 cap, # refills: 1 Last Office Visit: 04/24/2018 eze Future Office Visit: Next 5 appointments (look out 90 days) Jul 10, 2018 1:30 PM CDT Return Visit with [facility]kie [facility] ([facility] [address] [place] [address] 90 capsule 1 Sig: TAKE ONE CAPSULE BY MOUTH EVERY DAY PPI Protocol Passed - 07/07/2018 4:55 AM Passed - Not on Clopidogrel (unless Pantoprazole ordered) Passed - No diagnosis of osteoporosis on record Passed - Recent (12 mo) or future (30 days) visit within the authorizing provider's specialty Patient had office visit in the last 12 months or has a visit in the next 30 days with authorizing provider or within the authorizing provider's specialty. See Patient Info tab in inbasket, or Choose Columns in Meds & Orders section of the refill encounter. Passed - Medication is active on med list Passed - Patient is age 18 or older documented in this encounter Plan of Treatment Not on file documented as of this encounter Visit Diagnoses Diagnosis Gastroesophageal reflux disease, esophagitis presence not specified documented in this encounter Additional Health Concerns Assessment Noted Time PHQ-9 Depression Total Score: 7 06/06/19 19 3:06 PM ANIMAL NUTRITIONIST documented as of this encounter Care Teams Demand Generator Manager Relationship Specialty Start Date End Date Andrew Carbone MD PCP - General Family Practice 01/19/12 [place] [address] [address] [address] Assigned PCP 11/16/20 01/01/24 [place] [address] [address] [address] Assigned PCP 01/13/12 11/15/20 documented as of this encounter
--- OUTSIDE RECORDS SUMMARY | 2025-01-10 17:06 | XMS_ITS | Encounter Summary ---
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
--- OUTSIDE RECORDS SUMMARY | 2025-01-10 17:06 | XMS_ITS | Clinical Summary ---
Author Organization [facility] Address [address] [place] [id number] Care Team Providers [employer] Name Role Phone Andrew Carbone MD Primary Care Provider [phone] Allergies No known active allergies Medications cetirizine (ZYRTEC) 10 MG tabletIndication s:Seasonal allergic rhinitis, unspecified trigger Take 1 tablet (10 mg) by mouth daily 90 tablet 1 01/09/2018 Active diclofenac (CATAFLAM) 50 MG tabletIndication s:Acute pain of right shoulder,Right elbow pain Take 1 tablet (50 mg) by mouth 3 times daily as needed (pain) 30 tablet 1 05/23/2019 Active buPROPion (WELLBUTRIN XL) 150 MG 24 hr tabletIndication s:Generalized anxiety disorder Take 1 tablet (150 mg) by mouth every morning 90 tablet 1 11/10/2020 Active venlafaxine (EFFEXOR-XR) 75 MG 24 hr capsuleIndicatio ns:Generalized anxiety disorder TAKE 1 CAPSULE BY MOUTH EVERY DAY 30 capsule 06/15/2021 Active venlafaxine (EFFEXOR-XR) 150 MG 24 hr capsuleIndicatio ns:Generalized anxiety disorder TAKE 1 CAPSULE BY MOUTH EVERY DAY 30 capsule 06/25/2021 Active omeprazole (PRILOSEC) [address] capsuleIndicatio ns:Gastroesophag eal reflux disease, unspecified whether esophagitis present TAKE 1 CAPSULE BY MOUTH EVERY DAY 30 capsule 11/26/2021 Active Active Problems Problem Noted Date Diagnosed Date Seasonal allergic rhinitis 01/09/2018 Elevated fasting glucose 03/21/2015 Morbid obesity 03/19/2015 Elevated blood pressure read ing in office with diagnosis of hypertension 01/20/2015 CARDIOVASCULAR SCREENING; LDL GOAL LESS THAN 160 2011 Overview (2011): Flory Alas CMA GERD (gastroesophageal reflux disease) 2 Tobacco abuse 10/19/2011 Generalized anxiety disorder 10/19/2011 Overview (02/10/2015): Diagnosis updated by automated process. Provider to review and confirm. MAY (obstructive sleep apnea) 10/19/2011 Resolved Problems Problem Noted Date Diagnosed Date Resolved Date Sleep apnea, obstructive 02/20/201403/2015 Immunizations Immunization Administration Dates Next Due Influenza (prior to 2023) 01/05/2016 Influenza Vaccine >6 months,quad, PF 01/20/2015, 02/15/2014 TDAP (Adacel,Boostrix) 04/10/2014,12/20/2011 Family History Medical History Relation Comments Diabetes Maternal Grandfather Hypertension Maternal Grandfather Myocardial Infarction Maternal Grandfather sever al heart attacks. Prostate Cancer Maternal Grandfather Lipids Maternal Grandmother Hypertension Mother Cerebrovascular Disease No family hx of Relation Status Comments Brother Alive Daughter 1 Alive Daughter 2 Alive Father Alive Maternal Grandfather Alive Maternal Grandmother Alive Mother Alive Sister Alive Social History Tobacco Use Types Packs/Day Years Used Date Smoking Tobacco: Every Day Cigarettes 1 12 Started: 03/17/2000; Last attempted to quit: 03/17/2012 Smokeless Tobacco: Never Alcohol Use Standard Drinks/Week Comments Yes 0 (1 standard drink = 0.6 oz pur e alcohol) 2-5 drinks daily (beer). PHQ-2 Answer Date Recorded PHQ-2 Score 3 11/10/2020 Adolescent Education Answer Date Record ed Getting School Help Needed Not on file 12/31 Sex and Gender Information Value Date Recorded Sex Assigned at Not on file Legal Sex Male 5:15 AM [employer] Gender Identity Not on file Sexual Orientation Not on file Last Filed Vital Signs Vital Sign Reading Time Taken Comments Blood Pressure 136/75 10/06/2019 2:20 AM CDT Pulse 104 06/05/2019 9:51 AM [employer]RI[employer] Temperature 36.4 C (97.6 F) 10/06/2019 2:20 AM CDT Respiratory Rate 16 10/06/2019 2:20 AM CDT Oxygen Saturation 98% 10/06/2019 2:20 AM CDT Inhaled Oxygen Concentration - - Weight 120.2 kg (265 lb) 10/06/2019 2:20 AM CDT Height 177.8 cm (5' 10) 10/06/2019 2:20 AM CDT Body Mass Index 38.02 10/06/2019 2:20 AM CDT Plan of Treatment Not on file Insurance [employer] Advance Directives For more information, please contact: [phone] * Full Code (Latest Code Status on File) Date Activated Date Inactivated Comments 02/20/2014 4:40 PM 02/22/2014 1:21 PM [employer] Relationship Specialty Start Date End Date Andrew Carbone MD PCP - General Family Practice 01/19/12
== END 2025-01-10 18:09 | disposition home or self-care (01) ==
PROVIDERS: Emergency Provider Emergency Medicine Emergency Medical Services; PCP Physician Assistant Medical
DX: M54.81 Occipital neuralgia (principal)
CPT/HCPCS: 70450; 96372; 99284; J2003; J2919